=== PATIENT | female | born 1980 | race Caucasian/White ===

== ENCOUNTER 2018-01-01 01:29 | Emergency (ER) | payer MEDICAID ==
[2018-01-01 01:37] VITALS: BP 117/94
--- NOTE | 2018-01-01 04:34 | ED Physician Documentation ---
ED Addendum - Addendum Addendum: 01/01/18 04:33 left prior to evaluation.
== END 2018-01-01 03:05 | disposition left against medical advice (07) ==
LOC: ED 01:29
DX: Z53.21 Procedure and treatment not carried out due to patient leaving prior to being seen by health care provider (principal)
CPT/HCPCS: 99282

== ENCOUNTER 2018-07-28 17:28 | Emergency (ER) | payer MEDICAID ==
[2018-07-28] MEDS ORDERED: BUFFERED LIDOCAINE 10 ML SYRINGE SUBQ STA (18:01)
--- NOTE | 2018-07-28 18:02 | ED Physician Documentation ---
PD HPI UPPER EXT INJURY - Stated complaint Stated Complaint: R PINKY LAC - Chief complaint Chief Complaint: Laceration - History obtained from History obtained from: Patient - History of Present Illness Location: Right (She cut her right pinky on a sharp can lid at home just prior to arrival. 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, Other : None HEENT: None Psych: None Musculoskeletal: None Derm: None Other Past Medical History: uterine and cervical cancer, irritable bowel syndrome - Past Surgical History Past Surgical History: Yes /TOY PACKER: Hysterectomy - Present Medications Home Medications: Ambulatory Orders Medication Instructions Recorded Confirmed Diclofenac Sodium 50 mg PO 07/28/18 - Allergies Allergies/Adverse Reactions: Allergies Allergy/AdvReac Type Severity Reaction Status Date / Time codeine AdvReac Nausea Verified 07/28/18 17:45 - Social History Does the pt smoke?: No Smoking Status: Never smoker Does the pt drink ETOH?: No Does the pt have substance abuse?: Yes - Immunizations Immunizations are current?: No - POLST Patient has POLST: No PD ED PE NORMAL - Vitals Vital signs reviewed: Yes - General General: Alert and oriented X 3, No acute distress - Extremities Extremities: Other (There is a slightly less than 1 cm curved laceration on the palmar side of the right pinky finger just proximal to the PIP with normal flexion strength and neurovascular status at the tip.) - Neuro Neuro: Alert and oriented X 3, Normal speech Results - Vitals Vitals: Vital Signs - 24 hr 07/28/18 17:42 Temperature 37 C Heart Rate 73 Respiratory 20 Rate Blood Pressure 139/101 H O2 Saturation 99 Oxygen O2 Source Room air Procedures - Laceration (location) R fifth finger Length in cm: 1 Wound type: Curved, Flap, Superficial, Into subcut fat Neurovascular status: Sensory intact, Motor intact Tendon involvement: Tendon intact. No: Tendon Injury Anesthesia: Lidocaine 1%, With bicarb Wound Preparation: Hibiclens, Irrigated copiously NS Skin layer closure: Nylon, Interrupted, Size #-0 - enter number (5-0), Sutures - enter # (3) Other: No: Tetanus UTD (but refuses) Complexity: Simple Departure - Departure Disposition: 01 Home, Self Care Clinical Impression: Laceration Condition: Good Record reviewed to determine appropriate education?: Yes Instructions: ED Laceration Hand Comments: Come back for any signs of infection which would include: Redness, swelling, d rainage, increased pain, or fevers. Follow-up with your physician in 14 days for suture removal. Your blood pressure was elevated today on check into the emergency department. This does not mean that you have hypertension, it is a common phenomenon to come to the emergency department and have elevated blood pressure. I recommend that you see your primary care physician within the week to have it rechecked when you are feeling better.
[2018-07-28 18:27] VITALS: BP 128/93
== END 2018-07-28 18:29 | disposition home or self-care (01) ==
LOC: ED 17:28
DX: S61.216A Laceration without foreign body of right little finger without damage to nail, initial encounter (principal); R03.0 Elevated blood-pressure reading, without diagnosis of hypertension; W26.8XXA Contact with other sharp object(s), not elsewhere classified, initial encounter
CPT/HCPCS: 12001; 99282; 99283

== ENCOUNTER 2018-10-07 20:12 | Emergency (ER) | payer MEDICAID ==
[2018-10-07] MEDS ORDERED: HYDROcod/ACETAM 5/325 MG TABLET PO STA (20:27)
[2018-10-07] MEDS ORDERED: ONDANSETRON ODT 4 MG TABLET TL STA (20:27)
--- NOTE | 2018-10-07 20:29 | ED Physician Documentation ---
PD HPI HEAD INJURY - Stated complaint Stated Complaint: GLF/HEAD INJ/N/V - Chief complaint Chief Complaint: Trauma Hd/Nk - History obtained from History obtained from: Patient - History of Present Illness Mechanism of head injury: Fell (She slipped on the ice about 48 hours ago and hit the vertex/occiput of her head very hard on the ground. Ever then since then she has had increasing headaches with vomiting and neck pain. She has abdominal pain but says it is just from vomiting, the vomiting significantly preceded the abdominal pain. No possibility of , she is status post remote hysterectomy.) Review of Systems Constitutional: reports: Reviewed and negative Eyes: reports: Photophobia. 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, Other : None HEENT: None Psych: None Musculoskeletal: None Derm: None - Past Surgical History Past Surgical History: Yes /DIRECTOR INTERNAL CONTROL: Hysterectomy - Present Medications Home Medications: Ambulatory Orders Medication Instructions Recorded Confirmed Diclofenac Sodium 50 mg PO 07/28/18 Ondansetron Odt [Zofran] 4 mg TL Q6H PRN #10 tablet 10/07/18 - Allergies Allergies/Adverse Reactions: Allergies Allergy/AdvReac Type Severity Reaction Status Date / Time codeine AdvReac Nausea Verified 10/07/18 20:20 - Social History Does the pt smoke?: No Smoking Status: Never smoker Does the pt drink ETOH?: No Does the pt have substance abuse?: Yes - Immunizations Immunizations are current?: No - POLST Patient has POLST: No PD ED PE NORMAL - Vitals Vital signs reviewed: Yes - General General: Alert and oriented X 3, Other (uncomfortable/photophobic) - HEENT HEENT: PERRL, EOMI - Neck Neck: Supple, no meningeal sign, No bony TTP - Abdomen Abdomen: Soft, Non tender - Neuro Neuro: Alert and oriented X 3, addiction medicine physician 2-12 intact Eye Opening: Spontaneous Motor: Obeys Commands Verbal: Oriented GCS Score: 15 - Psych Psych: Normal mood, Normal affect Results - Vitals Vitals: Vital Signs - 24 hr 10/07/18 20:16 Heart Rate 72 Respiratory 18 Rate Blood Pressure 123/94 H O2 Saturation 99 Oxygen O2 Source Room air - Rads (name of study) CT Head and Cspine Radiology: EMP read contemporaneously (neg) Departure - Departure Disposition: 01 Home, Self Care Clinical Impression: Neck pain Concussion Qualifiers: Encounter type: initial encounter Loss of consciousness presence/duration: without LOC Qualified Code(s): S06.0X0A - Concussion without loss of consciousness, initial encounter Condition: Good Record reviewed to determine appropriate education?: Yes Instructions: ED Concussion Prescriptions: Ondansetron Odt [Zofran] 4 mg TL Q6H PRN #10 tablet PRN Reason: Nausea / Vomiting Comments: Call your doctor to arrange a follow-up appointment, make the next available appointment. In the interim, return anytime if worse or if new symptoms develop.
--- NOTE | 2018-10-07 22:02 | CT Report ---
Reason: head/neck inj Procedure Date: 10/07/2018 Accession Number: [id number] / [id number] Procedure: CT - Cervical Spine W/O CPT Code: FULL RESULT: EXAM: CT HEAD. CT SCAN OF THE CERVICAL SPINE. EXAM DATE: 10/07/2018 09:50 PM. CLINICAL HISTORY: Ringing in ears, vomiting, fell on ice this , COMPARISON: No priors. TECHNIQUE: Noncontrast axial sections through the head and cervical spine. Reformats: Sagittal and coronal of the head, coronal and sagittal of the cervical spine. In accordance with CT protocol optimization, one or more of the following dose reduction techniques were utilized for this exam: automated exposure control, adjustment of mA and/or KV based on patient size, or use of iterative reconstructive technique. FINDINGS: CT head: Parenchyma: No acute intracranial hemorrhage or large cortical infarct. No intra-axial mass within the confines of a non-contrast exam. No midline shift. Extraaxial Spaces: No abnormal extra-axial collections demonstrated. Ventricles and sulci: Ventricles and sulci are proportional. Sinuses: Visualized paranasal sinuses are without air-fluid level. No evident mastoid fluid. Orbits: Without significant abnormality. Bones: No evidence of fracture or calvarial defect. Other: None. CT CERVICAL SPINE: Alignment: Normal. No scoliosis or spondylolisthesis. Bones: No fracture or bone lesion. Interspace Levels/Facets: There is no significant central canal or neural foraminal stenosis demonstrated at this time. Spinal Canal: Normal. Musculature: Normal. No fatty atrophy. Other: The paravertebral and prevertebral soft tissues are unremarkable. The lung apices are clear. IMPRESSION: Head CT: No acute intracranial abnormality. Cervical Spine CT: No acute bone abnormality. [facility]
--- NOTE | 2018-10-07 22:02 | CT Report ---
Reason: head/neck inj Procedure Date: 10/07/2018 Accession Number: [id number] / [id number] Procedure: CT - Head W/O CPT Code: FULL RESULT: EXAM: CT HEAD. CT SCAN OF THE CERVICAL SPINE. EXAM DATE: 10/07/2018 09:50 PM. CLINICAL HISTORY: Ringing in ears, vomiting, fell on ice this , COMPARISON: No priors. TECHNIQUE: Noncontrast axial sections through the head and cervical spine. Reformats: Sagittal and coronal of the head, coronal and sagittal of the cervical spine. In accordance with CT protocol optimization, one or more of the following dose reduction techniques were utilized for this exam: automated exposure control, adjustment of mA and/or KV based on patient size, or use of iterative reconstructive technique. FINDINGS: CT head: Parenchyma: No acute intracranial hemorrhage or large cortical infarct. No intra-axial mass within the confines of a non-contrast exam. No midline shift. Extraaxial Spaces: No abnormal extra-axial collections demonstrated. Ventricles and sulci: Ventricles and sulci are proportional. Sinuses: Visualized paranasal sinuses are without air-fluid level. No evident mastoid fluid. Orbits: Without significant abnormality. Bones: No evidence of fracture or calvarial defect. Other: None. CT CERVICAL SPINE: Alignment: Normal. No scoliosis or spondylolisthesis. Bones: No fracture or bone lesion. Interspace Levels/Facets: There is no significant central canal or neural foraminal stenosis demonstrated at this time. Spinal Canal: Normal. Musculature: Normal. No fatty atrophy. Other: The paravertebral and prevertebral soft tissues are unremarkable. The lung apices are clear. IMPRESSION: Head CT: No acute intracranial abnormality. Cervical Spine CT: No acute bone abnormality. [facility]
[2018-10-07] MEDS ORDERED: ONDANSETRON ODT 4 MG Prepack 2 TL STA (22:22)
[2018-10-07 22:30] VITALS: BP 114/75
== END 2018-10-07 22:31 | disposition home or self-care (01) ==
LOC: ED 20:12
DX: M54.2 Cervicalgia (principal); S06.0X0A Concussion without loss of consciousness, initial encounter; W00.0XXA Fall on same level due to ice and snow, initial encounter
CPT/HCPCS: 70450; 72125; 99283; A9270; Q0162

== ENCOUNTER 2019-02-11 19:54 | Emergency (ER) | payer MEDICAID ==
[2019-02-11 20:04] VITALS: BP 128/89
--- NOTE | 2019-02-11 21:00 | XRAY Report ---
Reason: crushed hand in car door Procedure Date: 02/11/2019 Accession Number: [id number] / [id number] Procedure: XR - Hand 3 View LT CPT Code: FULL RESULT: EXAM: LEFT HAND RADIOGRAPHY EXAM DATE: 02/11/2019 08:25 PM. CLINICAL HISTORY: Crushed hand in car door. COMPARISON: None. TECHNIQUE: 3 views. FINDINGS: Bones: No fracture or focal bony lesion. Joints: No evidence of dislocation. Soft Tissues: No unexpected soft tissue findings. IMPRESSION: No evidence of fracture or dislocation. [facility]
--- NOTE | 2019-02-11 21:12 | ED Physician Documentation ---
PD HPI UPPER EXT INJURY - Stated complaint Stated Complaint: LFT HAND PX - Chief complaint Chief Complaint: Trauma Ext - History obtained from History obtained from: Patient - History of Present Illness Location: Left, Hand Type of injury: Crush Where injury occurred: Home Timing - onset: How many hours ago (2), Today Timing - duration: Hours Timing - details: Abrupt onset, Still present Improved by: No: Rest Worsened by: Moving, Palpating Associated symptoms: Numbness (some in thumb), Swelling. No: Weakness Similar symptoms before: Has not had sx before Recently seen: Not recently seen Review of Systems Skin: denies: Abrasion (s), Laceration (s) Neurologic: reports: Numbness (thumb feels slightly numb). 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: Hysterectomy - Present Medications Home Medications: Ambulatory Orders Medication Instructions Recorded Confirmed Diclofenac Sodium 50 mg PO 07/28/18 - Allergies Allergies/Adverse Reactions: Allergies Allergy/AdvReac Type Severity Reaction Status Date / Time codeine AdvReac Nausea Verified 02/11/19 20:04 - Social History Does the pt smoke?: No Smoking Status: Never smoker Does the pt drink ETOH?: Yes ETOH Use: Wine Does the pt have substance abuse?: Yes Substance Use and Type: Marijuana - Immunizations Immunizations are current?: No Immunizations: TDAP >10years/unknown - POLST Patient has POLST: No PD ED PE NORMAL - Vitals Vital signs reviewed: Yes - General General: Alert and oriented X 3, Well developed/nourished, Other (seems in pain due to hand injury. ) - Derm Derm: Normal color, Warm and dry - Extremities Extremities: Other (left hand with some swelling and tendrness at thenar area and base of thumb. Not tender at UCL itself. Normal color and cap refill in thumb. Sensation to sharp/dull is present. Limited ROM of the thumb due to pain but can flex/ext/oppose. ) - Neuro Neuro: Alert and oriented X 3, No motor deficit, No sensory deficit, Normal speech Results - Vitals Vitals: Oxygen O2 Source Room air PD MEDICAL DECISION MAKING - ED course Complexity details: reviewed results (no fractures), considered differential, d/w patient Departure - Departure Disposition: 01 Home, Self Care Clinical Impression: Crushed hand and fingers Qualifiers: Encounter type: initial encounter Laterality: left Qualified Code(s): S67.22XA - Crushing injury of left hand, initial encounter Condition: Stable Record reviewed to determine appropriate education?: Yes Instructions: ED Contusion Hand Follow-Up: Cece Mckeon MD [Primary Care Provider] - Comments: Use the wrist and thumb splint for comfort for the next several days or so until it feels better. There are no fracture seen on your x-ray. I presume this will get feeling better as the swelling goes down. Rest ice and elevate the hand often today and tomorrow. Use anti-inflammatories such as naproxen or ibuprofen. Add Tylenol if needed for pain. Recheck if not improved over the next several days or so. Discharge Date/Time: 02/11/19 22:26
[2019-02-11] MEDS ORDERED: HYDROcod/ACETAM 5/325 MG TABLET PO STA (21:49)
[2019-02-11] MEDS ORDERED: NAPROXEN 250 MG TABLET PO STA (21:49)
== END 2019-02-11 22:26 | disposition home or self-care (01) ==
LOC: ED 19:54
DX: S67.22XA Crushing injury of left hand, initial encounter (principal); W23.0XXA Caught, crushed, jammed, or pinched between moving objects, initial encounter; Y92.009 Unspecified place in unspecified non-institutional (private) residence as the place of occurrence of the external cause
CPT/HCPCS: 73130; 99282; 99283; A9270